=== PATIENT | male | born 1980 | race Caucasian/White ===

== ENCOUNTER 2022-01-08 10:57 | Outpatient (CLI) | payer OTHER, SELFPAY ==
--- NOTE | 2022-01-11 15:12 | WPDHOMESLEEP ---
Sleep Study - Home Unattended Date of Study: 01/08/22 Ordering Provider: Conrado Toney APRN Interpreting Provider: Kaylee Bell MD Home Sleep Study Type: Apnea Link Air Height: 1.78 m Weight: 100.244 kg Body Mass Index: 31.7 Neck Circumference (inches): 17.5 [place]: 13 Reason for Sleep Study Loud snoring, daytime fatigue Sleep History Deepak Ramirez is a 41 year old male with hypertension. He has loud snoring and witnessed apneas. He is tired during the day. This started years ago and has been slowly worsening. There is a positive family history of sleep issues with his father and sister both having sleep apnea. he does not awaken from sleep feeling short of breath. He occasionally awakens at night with heartburn, belching or coughing. He constantly snores and it is always loud enough that others complain about it. He constantly has trouble sleeping with a cold. He rarely wakes up gasping for breath at night. He constantly has breathing problems at night observed by others. He rarely sweats excessively at night or notices his heart pounding or beating irregularly at night. He rarely falls asleep during the day, rarely falls asleep involuntarily. He never falls asleep while driving. He rarely has loss of muscle tone with strong emotion. He occasionally has daytime difficulties due to excessive sleepiness. Does not feel paralyzed on waking or falling asleep, rarely has vivid dreamlike scenes upon awakening or falling asleep. He has never frayed to go to sleep. He rarely has nightmares. He rarely remembers his dreams. He occasionally has racing thoughts. He does not feel sad or depressed. He rarely has anxiety. He occasionally has muscular tension. He occasionally notices parts of his body jerking. He does not kick at night. He rarely has crawling and aching feelings in his legs, rarely has any kind of leg pain at night. He rarely has morning jaw pain and rarely grinds his teeth during sleep. He rarely is bothered by pain during the day. He has never awakened by pain at night. He occasionally wakes up feeling stiff the morning with sore achy muscles. He frequently wakes up with pain in the neck and spine. He has heartburn as well as nasal allergies. Normal bedtime is 10:00 p.m. falling asleep within 15 minutes, typically waking once at night for 5 minutes to use the bathroom or look around the room. He is able to return to sleep easily. He wakes at 5:15 a.m. on weekdays. On the weekends he also goes to bed at 10:00 p.m. but weeks later, 7:00 a.m.. He estimates getting 7 hours of sleep at night. He sleeps an apartment during the week and at a house during the weekend. He does not generally take naps in the afternoon or evening although a short nap lasting 10 or 15 minutes may be refreshing. He is usually drowsy in the morning for 2 hours or longer. He feels better in the evening compared to other times of day. Habits: Never smoked tobacco. Caffeine 2 cups of coffee a day. No alcohol or recreational drugs. [facility] Past Medical History Medical History (Updated 01/11/22 @ 15:32 by Kaylee Bell MD) HTN (hypertension) Surgical History Surgical History Status post lateral meniscus repair Family History Family History Sibling Thyroid cancer Grandparent Diabetes mellitus Grandparent Acute myocardial infarction Father Hypertension Mother Cerebrovascular accident Social History Social History Smoking status: Never smoker Alcohol intake: never Medications Home Medications Medication Instructions Recorded Confirmed Type cetirizine 10 mg capsule 10 mg PO DAILY PRN 09/26/21 09/26/21 History lisinopril 10 mg tablet 10 mg PO DAILY 09/26/21 09/26/21 History olopatadine 0.1 % eye drops 1 drp EACH EYE BID 09/26/21 09/26/21 H
[2022-01-11 15:36] VITALS: BMI 31.7
== END 2022-01-09 12:33 | disposition home or self-care (01) ==
LOC: ANHCSM 11:03
PROVIDERS: Visit Provider Nurse Practitioner Family
DX: G47.33 Obstructive sleep apnea (adult) (pediatric) (principal)
CPT/HCPCS: 95806